=== PATIENT | female | born 1990 | race African-American/Black ===

== ENCOUNTER 2021-06-07 03:37 | Emergency (ER) | payer SELFPAY ==
[~2021-06-07] VITALS: Ht 167.6 cm; Wt 55.0 kg
[2021-06-07] MEDS ORDERED: TOPUD PO (06:22)
[2021-06-07] MEDS ORDERED: ACETAMINOPHEN 325MG TABLET PO ONE (06:30)
[2021-06-07 07:04] VITALS: BP 125/86
== END 2021-06-07 07:07 | disposition home or self-care (01) ==
LOC: ER 03:37
DX: S90.822A Blister (nonthermal), left foot, initial encounter (principal); E11.9 Type 2 diabetes mellitus without complications; X58.XXXA Exposure to other specified factors, initial encounter; Y93.89 Activity, other specified; Y92.89 Other specified places as the place of occurrence of the external cause; Y99.8 Other external cause status; Z88.0 Allergy status to penicillin
CPT/HCPCS: 82962; 99282